=== PATIENT | female | born 1955 | race African-American/Black ===

== ENCOUNTER 2019-08-21 06:27 | Emergency (ER) | payer OTHER, MEDICAID ==
[~2019-08-21] VITALS: Ht 167.6 cm; Wt 45.0 kg
[2019-08-21] MEDS ORDERED: OXYCODONE HCL/ACETAMINOPHEN 5/325MG TABLET PO ONE (07:00)
[2019-08-21] MEDS ORDERED: BACITRACIN 15GM TUBE TOP ONE (09:15)
[2019-08-21 13:37] VITALS: BP 132/86
== END 2019-08-21 13:19 | disposition home or self-care (01) ==
LOC: ER 06:27
DX: S82.145A Nondisplaced bicondylar fracture of left tibia, initial encounter for closed fracture (principal); S00.81XA Abrasion of other part of head, initial encounter; S09.8XXA Other specified injuries of head, initial encounter; I10 Essential (primary) hypertension; V03.10XA Pedestrian on foot injured in collision with car, pick-up truck or van in traffic accident, initial encounter; Y93.89 Activity, other specified; Y92.488 Other paved roadways as the place of occurrence of the external cause
CPT/HCPCS: 29505; 73560; 99284